=== PATIENT | male | born 1965 | race Asian ===

== ENCOUNTER 2018-11-29 04:17 | Inpatient (IN) | payer SELFPAY ==
[~2018-11-29] VITALS: Ht 160 cm; Wt 51.7 kg
[2018-11-29] MEDS ORDERED: SODIUM CHLORIDE 0.9% 1,000 ML IV ONE (05:00)
[2018-11-29 05:10] LABS: Basophils # (auto) 0.1 uL; Basophils % (auto) 1.3 % (0.0-2.0); Eosinophils # (auto) 0.4 uL; Eosinophils % (auto) 4.4 % (0.0-7.0); Hematocrit 49.4 % (41.0-53.0); Hemoglobin 16.8 g/dL (13.5-17.5); Lymphocytes # (auto) 2.6 uL; Lymphocytes % (auto) 27.2 % (10.0-50.0); Mean Corpuscular Hemoglobin 31.2 pg (28.0-32.0); Monocytes # (auto) 0.9 uL; Monocytes % (auto) 9.6 % (0.0-12.0); Neutrophils # (auto) 5.6 uL; Neutrophils % (auto) 57.5 % (37.0-80.0); Nucleated Red Blood Cells % 0.1 %; Platelet Count (auto) 290 10^3/uL (140-450); Red Blood Cells 5.37 10^6/uL (4.5-5.90); Red Cell Distribution Width 12.9 % (11.8-14.3); White Blood Cell 9.7 10^3/uL (4.4-10.8)
[2018-11-29 05:31] LABS: Anion Gap 7 (5-15); Blood Urea Nitrogen 13 mg/dL (7-18); Calcium 8.6 mg/dL (8.5-10.1); Carbon Dioxide 27 mmol/L (21-32); Chloride 106 mmol/L (98-107); Glucose 116 mg/dL (74-106); Magnesium 2.1 mg/dL (1.6-2.6); Potassium 3.6 mmol/L (3.5-5.1); Sodium 140 mmol/L (136-145)
[2018-11-29 05:35] LABS: Alanine Aminotransferase 22 U/L (16-61); Albumin 3.7 g/dL (3.4-5.0); Alkaline Phosphatase 51 U/L (45-117); Aspartate Aminotransferase 18 U/L (15-37); BUN/Creatinine Ratio 15.7; GFR African American > 60 mL/min; GFR Non-African American > 60 mL/min; Total Protein 8.6 g/dL (6.4-8.2)
[2018-11-29 05:38] LABS: Bilirubin, Total 0.6 mg/dL (0.2-1.0)
[2018-11-29] MEDS ORDERED: ADENOSINE 6 MG/2 ML INJ IV ONE ×2 (05:45→06:00)
[2018-11-29] MEDS ORDERED: FUROSEMIDE 20 MG/2 ML VIAL IV ONE (06:15)
[2018-11-29 06:40] LABS: Urine Bacteria NONE SEEN /hpf (None Seen); Urine Blood Negative /uL (Negative); Urine Specific Gravity 1.003 (1.001-1.035); Urine WBC <1 /hpf (0 - 3)
[2018-11-29] MEDS ORDERED: TEMAZEPAM 15 MG CAP PO PRN (07:15)
[2018-11-29] MEDS ORDERED: ACETAMINOPHEN 325 MG TAB PO PRN (07:15)
[2018-11-29] MEDS ORDERED: NITROGLYCERIN 0.4 MG SL TAB SL PRN (07:15)
[2018-11-29] MEDS ORDERED: MORPHINE SULFATE 4 MG/ML SYR/VIAL IV PRN (07:15)
[2018-11-29] MEDS ORDERED: ONDANSETRON HCL 4 MG/2 ML VIAL IV PRN (07:15)
[2018-11-29] MEDS ORDERED: ASPirin 81 mg TAB PO SCH (10:00)
[2018-11-29] MEDS: METOPROLOL TARTRATE 25 MG TAB PO SCH ×2 (10:20→22:00)
[2018-11-29] MEDS: FAMOTIDINE 20 MG TAB PO SCH ×2 (10:20→22:33)
--- NOTE | 2018-11-29 12:27 | NUR ---
Telemetry admit from ER ANIL SIMEON admitted to Telemetry unit after SBAR received. Patient oriented to FRANKO BARKER, RN primary RN, unit, room, bed, and unit policies regarding patient care and visiting hours. Patient now on continuous telemetry monitoring, tele box # 46 and telemetry reading on arrival to unit is NORMAL SINUS RHYTHM, heart rate 81, with elevated T-Waves. Patient weighed by bedscale and encouraged to call if they need something. All questions and concerns addressed, patient verbalized understanding. Note:
[2018-11-29 14:02] VITALS: BP 108/73
[2018-11-29 16:41] VITALS: BP 103/70
--- NOTE | 2018-11-29 18:00 | NUR ---
PAGED HIDE STRETCHER HAND DR. RICARDO Patient states that he wants to leave the hospital if the transport pilot does not come within in the next two hours to consult with him.
--- NOTE | 2018-11-29 19:30 | NUR ---
RECEIVED PT FROM DAY RN POC REVIEWED
--- NOTE | 2018-11-29 20:00 | NUR ---
pt wanted to go ama at this time discussed poc with pt and reviewed pts hr and er experience, pt verbalized understanding for need to follow thru with doctors orders
[2018-11-29 22:00] VITALS: BP 104/71
[2018-11-29] MEDS ORDERED: ATORVASTATIN 20 MG TAB PO SCH (22:00)
[2018-11-30 05:43] VITALS: BP 101/70
[2018-11-30 06:33] LABS: Basophils # (auto) 0.1 uL; Basophils % (auto) 1.3 % (0.0-2.0); Eosinophils # (auto) 0.3 uL; Eosinophils % (auto) 4.2 % (0.0-7.0); Hematocrit 44.6 % (41.0-53.0); Hemoglobin 15.3 g/dL (13.5-17.5); Lymphocytes # (auto) 1.5 uL; Lymphocytes % (auto) 20.9 % (10.0-50.0); Mean Corpuscular Hemoglobin 31.1 pg (28.0-32.0); Mean Corpuscular Hgb Conc. 34.2 g/dL (32.0-36.0); Mean Corpuscular Volume 90.9 fL (80.0-100.0); Monocytes # (auto) 0.8 uL; Monocytes % (auto) 10.8 % (0.0-12.0); Neutrophils # (auto) 4.4 uL; Neutrophils % (auto) 62.8 % (37.0-80.0); Nucleated Red Blood Cells % 0.1 %; Platelet Count (auto) 266 10^3/uL (140-450); Red Blood Cells 4.91 10^6/uL (4.5-5.90); Red Cell Distribution Width 12.5 % (11.8-14.3); White Blood Cell 7.1 10^3/uL (4.4-10.8)
[2018-11-30 06:53] LABS: Chloride 107 mmol/L (98-107); Potassium 3.7 mmol/L (3.5-5.1); Sodium 138 mmol/L (136-145)
[2018-11-30 07:03] LABS: Alanine Aminotransferase 20 U/L (16-61); Albumin 3.4 g/dL (3.4-5.0); Alkaline Phosphatase 47 U/L (45-117); Anion Gap 4 (5-15); Aspartate Aminotransferase 17 U/L (15-37); BUN/Creatinine Ratio 12.9; Bilirubin, Total 0.7 mg/dL (0.2-1.0); Blood Urea Nitrogen 11 mg/dL (7-18); Calcium 8.9 mg/dL (8.5-10.1); Carbon Dioxide 27 mmol/L (21-32); Cholesterol 167 mg/dL (< 200); GFR African American > 60 mL/min; GFR Non-African American > 60 mL/min; Glucose 97 mg/dL (74-106); HDL Cholesterol 50 mg/dL (40-59); LDL Cholesterol 104 mg/dL (< 100); Total Protein 7.7 g/dL (6.4-8.2); Triglycerides 137 mg/dL (< 150)
--- NOTE | 2018-11-30 07:10 | NUR ---
pt rested comfortable all night no c/o chest pain or svt
--- NOTE | 2018-11-30 07:11 | NUR ---
report given to am nurse poc reviewed
--- NOTE | 2018-11-30 07:20 | NUR ---
Opening Shift Note Assumed care of patient, awake and alert. No S/S of distress/SOB or pain. Insructed on POC and to callfor assist PRN, will continue to monitor for changes Q1hr and PRN.
[2018-11-30 08:00] VITALS: BP 90/58
--- NOTE | 2018-11-30 08:00 | NUR ---
IV insertion IV access obtained, via clean sterile technique by inserting 20 gauge catheter at right wrist after 2 attempts. IV secured properly. No trauma to site. Patient tolerated well. NOTE: []
[2018-11-30] MEDS ORDERED: ADENOSINE 43 MG in GIVE UN-DILUTED 0 ML IV STA (08:15)
[2018-11-30 08:22] VITALS: BP 90/58
[2018-11-30] MEDS: METOPROLOL TARTRATE 25 MG TAB PO SCH (09:59)
[2018-11-30] MEDS: FAMOTIDINE 20 MG TAB PO SCH (10:00)
[2018-11-30] MEDS ORDERED: ASPirin 81 mg TAB PO SCH (10:00)
[2018-11-30 10:03] VITALS: BP 105/74
[2018-11-30] MEDS ORDERED: IOHEXOL 350 MG/ML 100ML IJ ONE (10:45)
[2018-11-30] MEDS ORDERED: LIDOCAINE 2%HCL (LOCAL ANESTH.) INJ 20ML MDV ONE (10:45)
--- NOTE | 2018-11-30 11:15 | NUR ---
Heart Cath Pt taken down to laborer electroplating.
[2018-11-30] MEDS ORDERED: fentaNYL CITRATE 100 MCG/2 ML VL ONE (12:09)
[2018-11-30] MEDS ORDERED: MIDAZOLAM HCL 1MG/1ML-2 ML VIAL ONE (12:09)
[2018-11-30] MEDS ORDERED: SODIUM CHL 0.9% 0 ML ONE (12:09)
[2018-11-30] MEDS ORDERED: ANGIOMAX 250 MG VIAL IV ONE (12:09)
[2018-11-30 16:25] VITALS: BP 105/70
[2018-11-30 16:32] VITALS: BP 90/58
--- NOTE | 2018-11-30 17:10 | NUR ---
Discharge from Tele Discharge instructions given as ordered. Encourage to follow up with PMD as instructed. All questions and concerns addressed. Patient verbalized understanding. IV removed with catheter intact, pressure dressing applied. Telemetry unit returned to ICU. Patient taken to vehicle via wheelchair with all personal belongings, accompanied by staff and family member. No distress noted at time of departure.
== END 2018-11-30 17:30 | disposition home or self-care (01) | DRG 280 ==
LOC: ER 04:19 → TELE 07:05 → TELE-CENTR 12:46
PROVIDERS: ADMIT Nurse Practitioner; ATTEND Internal Medicine
PROC: 4A023N8 Measurement of Cardiac Sampling and Pressure, Bilateral, Percutaneous Approach (ICD-10-PCS; principal; 2018-11-30)
PROC: B2111ZZ Fluoroscopy of Multiple Coronary Arteries using Low Osmolar Contrast (ICD-10-PCS; 2018-11-30)
PROC: B2151ZZ Fluoroscopy of Left Heart using Low Osmolar Contrast (ICD-10-PCS; 2018-11-30)
DX: I21.4 Non-ST elevation (NSTEMI) myocardial infarction (principal); I50.33 Acute on chronic diastolic (congestive) heart failure; I47.1 Supraventricular tachycardia; I07.1 Rheumatic tricuspid insufficiency; E78.5 Hyperlipidemia, unspecified; Z82.49 Family history of ischemic heart disease and other diseases of the circulatory system
CPT/HCPCS: 36415; 71045; 78452; 80053; 80061; 81001; 83036; 83735; 83880; 84443; 84484; 85025; 85379; 85610; 85730; 93005; 93017; 93306; 96361; 96374; 96375; A6257; G0378; J0153; J2250